=== PATIENT | male | born 1935 | race Caucasian/White ===

== ENCOUNTER 2021-05-26 21:22 | Inpatient (IN) | payer MEDICARE, MEDICAID ==
[~2021-05-26] VITALS: Ht 177.8 cm; Wt 57.9 kg
[~2021-05-26 21:22] MED LIST: ASPI81TA50 PO; HYDR-3237 PO; LISI-167 PO
--- NOTE | 2021-05-26 21:30 | NUR ---
THIS IS A 86M BIB EMS FROM [facility], PT HAS NEW ONSET RENAL FAILURE PER REPORT AND IS COVID+ (05/16), PT ALSO HAD ELEVATED TROPONIN AT PREVIOUS FACILITY AND INC WBC HOWEVER DID NOT GET ABX/ CULTURES. PT CONNECTED TO ALL MONITORING, VSS, NADN, TECH AT BEDSIDE FOR EKG.
[2021-05-26] MEDS ORDERED: AZITHROMYCIN 500 MG in SODIUM CHLORIDE 0.9% 250 ML IV ONE (22:00)
[2021-05-26] MEDS ORDERED: CEFTRIAXONE 1,000 MG in DEXTROSE 5% 50 ML IVPB ONE (22:00)
[2021-05-26] MEDS ORDERED: SODIUM CHLORIDE 0.9% 1,000ML IVBOLUS ONE (22:00)
[2021-05-26] MEDS ORDERED: VANCOMYCIN 1,500 MG in SODIUM CHLORIDE 0.9% 250 ML IV ONE (22:00)
[2021-05-26] MEDS ORDERED: VANCOMYCIN PER PHARMACY MC ONE (22:00)
[2021-05-26] MEDS ORDERED: SODIUM CHLORIDE FLUSH 10ML SYR IVF ONE (22:00)
[2021-05-26 22:14] LABS: MICROSCOPIC INDICATED
[2021-05-26] MEDS: SODIUM CHLORIDE 0.9% 1,000 ML IV ONE (22:19)
--- NOTE | 2021-05-26 22:19 | NUR ---
ABX STARTED AT THIS TIME, CULTURES DRAWN X2 PRIOR TO START
[2021-05-26 22:28] LABS: BASOPHILS % (AUTO) 0 % (0-1); EOSINOPHILS % (AUTO) 0 % (1-7); LYMPHOCYTES % (AUTO) 5 % (22-44); MEAN CORPUSCULAR HEMOGLOBIN 29.5 pg (27.5-34.5); MEAN CORPUSCULAR HGB CONC 33.2 g/dL (33.2-36.2); MEAN PLATELET VOLUME 8.3 fL (7.4-10.4); MONOCYTES % (AUTO) 4 % (2-9); NEUTROPHILS % (AUTO) 92 % (42-75); PLATELET COUNT 428 x10^3/uL (130-400); RED BLOOD COUNT 3.95 x10^6/uL (4.38-5.82); RED CELL DISTRIBUTION WIDTH 15.1 % (9.4-14.8)
[2021-05-26 22:32] LABS: ALANINE AMINOTRANSFERASE 26 U/L (12-78); ALBUMIN 2.2 g/dL (3.4-5.0); ANION GAP 13 mmol/L (5-15); CALCIUM 10.1 mg/dL (8.5-10.1); CHLORIDE 109 mmol/L (98-107); CREATININE 3.85 mg/dL (0.7-1.3)
[2021-05-26 22:37] LABS: ALKALINE PHOSPHATASE 84 U/L (45-117); BILIRUBIN,TOTAL 0.5 mg/dL (0.2-1.0); TOTAL PROTEIN 7.7 g/dL (6.4-8.2); TROPONIN I 0.051 ng/mL (0.000-0.045)
[2021-05-26] MEDS ORDERED: OMEP-110 PO (23:09)
[2021-05-26] MEDS ORDERED: FURO40TA6 PO (23:09)
[2021-05-26] MEDS ORDERED: ROSU40TA PO (23:09)
[2021-05-26] MEDS ORDERED: SPIR25TA5 PO (23:09)
[2021-05-26] MEDS ORDERED: TRAM50TA2 PO (23:09)
[2021-05-26] MEDS ORDERED: ATOR-2 PO (23:09)
[2021-05-26 23:18] LABS: INTERNATIONAL NORMALIZED RATIO 1.12 (0.93-1.1); PROTHROMBIN TIME 11.9 Seconds (9.6-11.5)
[2021-05-27] MEDS ORDERED: LABETALOL 5MG/ML, 20ML IVPush PRN
[2021-05-27] MEDS ORDERED: ACETAMINOPHEN 325 MG TABLET PO PRN
[2021-05-27] MEDS ORDERED: LACTATED RINGERS 1,000 ML IV SCH
[2021-05-27] MEDS ORDERED: VANCOMYCIN PER PHARMACY MC PRN
[2021-05-27] MEDS ORDERED: HYDROmorphone 2 MG/ML, 1ML IVPush PRN
[2021-05-27] MEDS ORDERED: POLYETHYLENE GLYCOL 17 GM PACKET PO PRN
[2021-05-27] MEDS: CEFTRIAXONE 1,000 MG in DEXTROSE 5% 50 ML IVPB SCH
[2021-05-27] MEDS ORDERED: ENOXAPARIN 40 MG/0.4 ML SQ SCH
[2021-05-27] MEDS ORDERED: PHARMACY MAY ADJ FOR RENAL FX MC PRN
[2021-05-27] MEDS ORDERED: MELATONIN 5 MG TABLET PO PRN
[2021-05-27] MEDS ORDERED: ASCORBIC ACID 500 MG TABLET PO SCH
[2021-05-27] MEDS ORDERED: ONDANSETRON 2MG/ML, 2ML IVPush PRN
--- NOTE | 2021-05-27 00:01 | NUR ---
HOSPITALIST AT BEDSIDE FOR ADMIT
--- NOTE | 2021-05-27 00:05 | NUR ---
PT HR NOW 130'S, PT HAS SIGNIFICANT TREMMORS, CAUSING PULSE OX UNABLE TO READ, HOSPITALIST AT BEDSIDE FOR REASSESSMENT.
[2021-05-27] MEDS: SODIUM CHLORIDE 0.9% 1,000 ML IV ONE (00:10)
--- NOTE | 2021-05-27 00:10 | NUR ---
PT UPGRADED FROM MEDICAL TO A MONITORED UNIT PER HOSPITALIST
[2021-05-27 01:11] LABS: TROPONIN I 0.056 ng/mL (0.000-0.045)
--- NOTE | 2021-05-27 01:22 | NUR ---
DR FITZPATRICK AT BEDSIDE FOR EVAL PT IS MORE CONFUSED AND IS REMOVING OXYMASK, VERBAL ORDER FOR RT AND HIGHFLOW O2 AT THIS TIME.
--- NOTE | 2021-05-27 01:38 | NUR ---
RT AT BEDSIDE
--- NOTE | 2021-05-27 01:50 | NUR ---
PTS BP SUDDENLY DROPPED DRASTICALLY TO 54/34, PT AWAKE BUT SLEEPY, PT RESPONDS TO QUESTIONS, PTS IVF NS BOLUS PLACED ON PRESSURE BAG AND INFUSED QUICKLY, PTS BP IMPROVED. SEE VITAL SIGNS FOR LOG. PT WAS TO BE MOVED TO ROOM 41 FOR RSI AND CENTRAL LINE, BUT PTS BP HAS IMPROVED AND MD WANTS TO WAIT ON INTUBATION, PTS O2 SATS ARE 98% AND HIS BP IS NOW 73/43 FOLLOWED UP BY A 91/45 BP. FOR NOW WE WILL WATCH PT AND REASSES. ADMITTING MD WILL CALL FAMILY AND DETERMINE CODE STATUS AND HOW AGGRESSIVE THE FAMILY WANTS TO BE WITH PTS CARE.
--- NOTE | 2021-05-27 02:30 | NUR ---
TASK RN, SPOKE WITH [facility], VERBAL ORDERS FOR MAGNESIUM LAB DRAW, NS AT 250 MLS/HR, AND LEVO GTT. ORDERS REPEATED
--- NOTE | 2021-05-27 02:42 | NUR ---
ERP TO BEDSIDE FOR CENTRAL LINE PLACEMENT
--- NOTE | 2021-05-27 03:29 | NUR ---
PHARMACY CALLED ABOUT HEPARIN GTT AND ANTIXA RESULT, PER PHARM IF PT GOT LOVENOX HEPARIN GTT TYPICALLY HELD FOR 12HRS WITH NORMAL RENAL FUNCTION, AND 24HRS WITH IMPAIRMENT. HOSPITALIST UPDATED AND STS HOLD GTT PT IS ANTICOAGULATED AT THIS POINT.
[2021-05-27] MEDS ORDERED: NOREPINEPHRINE 8 MG in SODIUM CHLORIDE 0.9% 242 ML IV PRN ×2 (03:30→07:30)
--- NOTE | 2021-05-27 03:40 | NUR ---
LEVO GTT STARTED AT THIS TIME
--- NOTE | 2021-05-27 04:20 | NUR ---
PT RESTING COMFORTABLY AT THIS TIME.
--- NOTE | 2021-05-27 04:22 | NUR ---
NO CHANGE IN GTT RATE AT THIS TIME
--- NOTE | 2021-05-27 04:30 | NUR ---
PT REMOVING OPTIFLOW, PT REPOSITIONED AND REMINDED HE NEEDS THAT OXYGEN. NO CHANGE IN GTT RATE AT THIS TIME
--- NOTE | 2021-05-27 04:56 | NUR ---
HOSPITTALIST AT BEDSIDE FOR REASSSSMENT, PER VERBAL ORDER FOR GARCIA INSERTION FOR I&O MONITORING, AND 1MG ATIVAN IV Q4HRS
[2021-05-27] MEDS ORDERED: LORazepam 2 MG/ML, 1ML ONE (04:59)
[2021-05-27] MEDS ORDERED: LORazepam 2 MG/ML, 1ML IVPush PRN (05:00)
--- NOTE | 2021-05-27 05:11 | NUR ---
PT MEDICATED PER ORDER 5 RIGHTS VERIFIED, GARCIA INSERTION COMPLETE AT THIS TIME, PT TOLERATED WELL NADN,
[2021-05-27 05:41] LABS: MEAN CORPUSCULAR HEMOGLOBIN 29.9 pg (27.5-34.5); MEAN CORPUSCULAR HGB CONC 33.5 g/dL (33.2-36.2); MEAN PLATELET VOLUME 7.8 fL (7.4-10.4); PLATELET COUNT 442 x10^3/uL (130-400); RED BLOOD COUNT 3.81 x10^6/uL (4.38-5.82); RED CELL DISTRIBUTION WIDTH 15.4 % (9.4-14.8)
[2021-05-27 05:52] LABS: ANION GAP 8 mmol/L (5-15); CHLORIDE 119 mmol/L (98-107); CREATININE 3.17 mg/dL (0.7-1.3)
[2021-05-27] MEDS: ALBUTEROL-IPRATROPIUM MDI INH INH SCH ×5 (06:00→21:00)
--- NOTE | 2021-05-27 06:12 | NUR ---
REPORT TO MELY ALVARADO, ALL QUESTIONS ADDRESSED PT READY FOR TRANSFER AT THIS TIME
[2021-05-27 06:33] LABS: BAND#(MANUAL) 3.94 x10^3/uL; BANDS%(MANUAL) 16 % (0-7); LYMPH#(MANUAL) 0.49 x10^3/uL (1-3.4); LYMPHS% (MANUAL) 2 % (22-44); METAMYELOCYTES# (MANUAL) 0.25 x10^3/uL (0-0); METAMYELOCYTES% (MANUAL) 1 % (0-1); MONOS#(MANUAL) 0.98 x10^3/uL (0.3-2.7); MONOS% (MANUAL) 4 % (2-9); SEG#(MANUAL) 18.94 x10^3/uL (1.8-6.8); SEGS% (MANUAL) 77 % (42-75)
[2021-05-27 06:35] LABS: <PLATELET ESTIMATE> INCREASED; <PLT MORPHOLOGY> NORMAL PLT MORPH; ANISOCYTOSIS 1+; ECHINOCYTES 1+
[2021-05-27] MEDS ORDERED: PHARMACOKINETIC MONITORING MC PRN (07:00)
[2021-05-27] MEDS ORDERED: LOVENOX/HEPARIN MC SCH (07:00)
[2021-05-27] MEDS ORDERED: PHARMACOKINETIC CONSULTATION MC ONE (07:00)
[2021-05-27] MEDS ORDERED: REMDESIVIR 100 MG in SODIUM CHLORIDE 0.9% 250 ML IVPB ONE (07:30)
[2021-05-27] MEDS ORDERED: REMDESIVIR 200 MG in SODIUM CHLORIDE 0.9% 250 ML IVPB ONE (07:30)
[2021-05-27] MEDS: SODIUM BICARBONATE 8.4% 150 MEQ in DEXTROSE 5% 1,000 ML IV SCH ×2 (08:15→18:46)
[2021-05-27] MEDS ORDERED: FLUTICASONE/VILANTEROL 100-25MCG/INH INH SCH (09:00)
[2021-05-27] MEDS: DEXAMETHASONE 4 MG/ML, 1ML IVPush SCH (09:43)
[2021-05-27] MEDS: ASCORBIC ACID 500 MG TABLET PO SCH ×2 (11:47→17:22)
[2021-05-27] MEDS: THIAMINE 100MG TABLET PO SCH (11:48)
[2021-05-27] MEDS: ZINC SULFATE 220 MG CAPSULE PO SCH (11:48)
[2021-05-27] MEDS: CHOLECALCIFEROL 5,000u TAB PO SCH (11:48)
[2021-05-27] MEDS: AZITHROMYCIN 500 MG TABLET PO SCH (11:49)
[2021-05-27] MEDS: HEPARIN 25,000 UNITS/250ML PMX 250 ML IV PRN (12:14)
[2021-05-27] MEDS: HEPARIN 5,000 UNITS/ML, 1ML IV PRN (23:03)
[2021-05-28] MEDS ORDERED: LACTATED RINGERS 1,000 ML IV SCH
[2021-05-28] MEDS: CEFTRIAXONE 1,000 MG in DEXTROSE 5% 50 ML IVPB SCH ×2 (00:52→23:18)
[2021-05-28 05:38] LABS: MEAN CORPUSCULAR HEMOGLOBIN 30.1 pg (27.5-34.5); MEAN CORPUSCULAR HGB CONC 34.3 g/dL (33.2-36.2); MEAN PLATELET VOLUME 8.1 fL (7.4-10.4); PLATELET COUNT 343 x10^3/uL (130-400); RED BLOOD COUNT 3.39 x10^6/uL (4.38-5.82)
[2021-05-28 05:41] LABS: ALANINE AMINOTRANSFERASE 22 U/L (12-78); ALBUMIN 1.5 g/dL (3.4-5.0); ANION GAP 7 mmol/L (5-15); CALCIUM 8.7 mg/dL (8.5-10.1); CHLORIDE 107 mmol/L (98-107); CREATININE 2.02 mg/dL (0.7-1.3)
[2021-05-28 05:45] LABS: ALKALINE PHOSPHATASE 80 U/L (45-117); BILIRUBIN,TOTAL 0.3 mg/dL (0.2-1.0); TOTAL PROTEIN 6.2 g/dL (6.4-8.2); VANCOMYCIN,RANDOM 11.3 mcg/mL
[2021-05-28] MEDS: ALBUTEROL-IPRATROPIUM MDI INH INH SCH (05:49)
[2021-05-28] MEDS: SODIUM BICARBONATE 8.4% 150 MEQ in DEXTROSE 5% 1,000 ML IV SCH (05:49)
[2021-05-28 06:05] LABS: BAND#(MANUAL) 0.64 x10^3/uL; BANDS%(MANUAL) 3 % (0-7)
[2021-05-28 06:06] LABS: <PLATELET ESTIMATE> ADEQUATE; <PLT MORPHOLOGY> NORMAL PLT MORPH; ANISOCYTOSIS 1+; LYMPH#(MANUAL) 0.43 x10^3/uL (1-3.4); LYMPHS% (MANUAL) 2 % (22-44); MONOS#(MANUAL) 0.43 x10^3/uL (0.3-2.7); MONOS% (MANUAL) 2 % (2-9); SEG#(MANUAL) 19.81 x10^3/uL (1.8-6.8); SEGS% (MANUAL) 93 % (42-75)
[2021-05-28] MEDS ORDERED: ALBUTEROL-IPRATROPIUM MDI INH INH PRN (08:00)
[2021-05-28] MEDS: REMDESIVIR 50 MG in SODIUM CHLORIDE 0.9% 250 ML IVPB SCH (09:00)
[2021-05-28] MEDS: DEXAMETHASONE 4 MG/ML, 1ML IVPush SCH (09:04)
[2021-05-28] MEDS: POTASSIUM CHLORIDE 20 MEQ PACKET PO SCH ×2 (09:06→17:57)
[2021-05-28] MEDS: CHOLECALCIFEROL 5,000u TAB PO SCH (09:07)
[2021-05-28] MEDS: AZITHROMYCIN 500 MG TABLET PO SCH (09:07)
[2021-05-28] MEDS: ZINC SULFATE 220 MG CAPSULE PO SCH (09:07)
[2021-05-28] MEDS: ASCORBIC ACID 500 MG TABLET PO SCH ×2 (09:07→17:57)
[2021-05-28] MEDS: THIAMINE 100MG TABLET PO SCH (09:07)
[2021-05-28] MEDS ORDERED: REMDESIVIR 100 MG in SODIUM CHLORIDE 0.9% 250 ML IVPB SCH (09:30)
[2021-05-28] MEDS: HEPARIN 25,000 UNITS/250ML PMX 250 ML IV PRN (13:39)
[2021-05-28] MEDS: HEPARIN 5,000 UNITS/ML, 1ML IV PRN (18:01)
[2021-05-29 05:15] LABS: MEAN PLATELET VOLUME 8.3 fL (7.4-10.4); PLATELET COUNT 258 x10^3/uL (130-400); RED BLOOD COUNT 3.44 x10^6/uL (4.38-5.82); RED CELL DISTRIBUTION WIDTH 15.1 % (9.4-14.8)
[2021-05-29 05:24] LABS: ANION GAP 7 mmol/L (5-15); CALCIUM 8.9 mg/dL (8.5-10.1); CHLORIDE 115 mmol/L (98-107); CREATININE 1.37 mg/dL (0.7-1.3)
[2021-05-29 06:07] LABS: <PLATELET ESTIMATE> ADEQUATE; <PLT MORPHOLOGY> NORMAL PLT MORPH; ANISOCYTOSIS 1+; ECHINOCYTES 1+; LYMPH#(MANUAL) 0.75 x10^3/uL (1-3.4); LYMPHS% (MANUAL) 4 % (22-44); MONOS#(MANUAL) 0.19 x10^3/uL (0.3-2.7); MONOS% (MANUAL) 1 % (2-9); SEG#(MANUAL) 17.77 x10^3/uL (1.8-6.8); SEGS% (MANUAL) 95 % (42-75)
[2021-05-29] MEDS: ENOXAPARIN 30 MG/0.3 ML SQ SCH ×2 (07:41→19:48)
[2021-05-29] MEDS: ASCORBIC ACID 500 MG TABLET PO SCH ×2 (09:35→17:44)
[2021-05-29] MEDS: REMDESIVIR 50 MG in SODIUM CHLORIDE 0.9% 250 ML IVPB SCH (09:35)
[2021-05-29] MEDS: AZITHROMYCIN 500 MG TABLET PO SCH (09:35)
[2021-05-29] MEDS: DEXAMETHASONE 4 MG/ML, 1ML IVPush SCH (09:35)
[2021-05-29] MEDS: ZINC SULFATE 220 MG CAPSULE PO SCH (09:36)
[2021-05-29] MEDS: CHOLECALCIFEROL 5,000u TAB PO SCH (09:36)
[2021-05-29] MEDS: THIAMINE 100MG TABLET PO SCH (09:36)
[2021-05-29 17:29] LABS: ALANINE AMINOTRANSFERASE 24 U/L (12-78); ALBUMIN 1.6 g/dL (3.4-5.0); ANION GAP 6 mmol/L (5-15); CALCIUM 9.2 mg/dL (8.5-10.1); CHLORIDE 114 mmol/L (98-107); CREATININE 1.43 mg/dL (0.7-1.3)
[2021-05-29 17:32] LABS: ALKALINE PHOSPHATASE 78 U/L (45-117); BILIRUBIN,TOTAL 0.2 mg/dL (0.2-1.0); TOTAL PROTEIN 6.4 g/dL (6.4-8.2)
[2021-05-29 20:20] VITALS: BP 137/78
[2021-05-30] MEDS: CEFTRIAXONE 1,000 MG in DEXTROSE 5% 50 ML IVPB SCH ×2 (00:33→23:42)
[2021-05-30 01:24] VITALS: BP 117/71
[2021-05-30 06:25] LABS: BASOPHILS % (AUTO) 0 % (0-1); EOSINOPHILS % (AUTO) 0 % (1-7); LYMPHOCYTES % (AUTO) 4 % (22-44); MEAN CORPUSCULAR HEMOGLOBIN 29.6 pg (27.5-34.5); MEAN CORPUSCULAR HGB CONC 33.6 g/dL (33.2-36.2); MEAN PLATELET VOLUME 7.8 fL (7.4-10.4); MONOCYTES % (AUTO) 5 % (2-9); NEUTROPHILS % (AUTO) 91 % (42-75); PLATELET COUNT 354 x10^3/uL (130-400); RED BLOOD COUNT 3.54 x10^6/uL (4.38-5.82); RED CELL DISTRIBUTION WIDTH 15.5 % (9.4-14.8)
[2021-05-30 06:38] LABS: ALANINE AMINOTRANSFERASE 26 U/L (12-78); ALBUMIN 1.7 g/dL (3.4-5.0); ANION GAP 3 mmol/L (5-15); CALCIUM 9.6 mg/dL (8.5-10.1); CHLORIDE 114 mmol/L (98-107); CREATININE 1.23 mg/dL (0.7-1.3)
[2021-05-30 06:41] LABS: ALKALINE PHOSPHATASE 92 U/L (45-117); BILIRUBIN,TOTAL 0.3 mg/dL (0.2-1.0); TOTAL PROTEIN 6.3 g/dL (6.4-8.2)
[2021-05-30 07:48] VITALS: BP 117/70
[2021-05-30] MEDS: ENOXAPARIN 30 MG/0.3 ML SQ SCH ×2 (09:56→20:16)
[2021-05-30] MEDS: REMDESIVIR 50 MG in SODIUM CHLORIDE 0.9% 250 ML IVPB SCH (09:56)
[2021-05-30] MEDS: AZITHROMYCIN 500 MG TABLET PO SCH (09:57)
[2021-05-30] MEDS: DEXAMETHASONE 4 MG/ML, 1ML IVPush SCH (09:57)
[2021-05-30] MEDS: THIAMINE 100MG TABLET PO SCH (09:57)
[2021-05-30] MEDS: CHOLECALCIFEROL 5,000u TAB PO SCH (09:57)
[2021-05-30] MEDS: ASCORBIC ACID 500 MG TABLET PO SCH ×2 (09:58→16:47)
[2021-05-30] MEDS: ZINC SULFATE 220 MG CAPSULE PO SCH (09:58)
[2021-05-30 12:36] VITALS: BP 150/76
[2021-05-30 19:53] VITALS: BP 137/74
[2021-05-31 00:15] VITALS: BP 130/74
[2021-05-31 05:09] LABS: BASOPHILS % (AUTO) 0 % (0-1); EOSINOPHILS % (AUTO) 0 % (1-7); LYMPHOCYTES % (AUTO) 5 % (22-44); MEAN CORPUSCULAR HGB CONC 33.5 g/dL (33.2-36.2); MEAN PLATELET VOLUME 7.7 fL (7.4-10.4); MONOCYTES % (AUTO) 5 % (2-9); NEUTROPHILS % (AUTO) 89 % (42-75); PLATELET COUNT 323 x10^3/uL (130-400); RED BLOOD COUNT 3.73 x10^6/uL (4.38-5.82); RED CELL DISTRIBUTION WIDTH 15.5 % (9.4-14.8)
[2021-05-31 05:17] LABS: CHLORIDE 112 mmol/L (98-107)
[2021-05-31 05:23] LABS: ALANINE AMINOTRANSFERASE 33 U/L (12-78); ALBUMIN 1.7 g/dL (3.4-5.0); ALKALINE PHOSPHATASE 88 U/L (45-117); ANION GAP 7 mmol/L (5-15); BILIRUBIN,TOTAL 0.3 mg/dL (0.2-1.0); CREATININE 1.15 mg/dL (0.7-1.3); TOTAL PROTEIN 6.4 g/dL (6.4-8.2)
[2021-05-31 07:34] VITALS: BP 112/64
[2021-05-31] MEDS: AZITHROMYCIN 500 MG TABLET PO SCH (08:56)
[2021-05-31] MEDS: ASCORBIC ACID 500 MG TABLET PO SCH ×2 (08:56→16:34)
[2021-05-31] MEDS: ZINC SULFATE 220 MG CAPSULE PO SCH (08:56)
[2021-05-31] MEDS: ENOXAPARIN 30 MG/0.3 ML SQ SCH (08:56)
[2021-05-31] MEDS: CHOLECALCIFEROL 5,000u TAB PO SCH (08:56)
[2021-05-31] MEDS: THIAMINE 100MG TABLET PO SCH (08:56)
[2021-05-31] MEDS: DEXAMETHASONE 4 MG/ML, 1ML IVPush SCH (08:56)
[2021-05-31] MEDS: REMDESIVIR 50 MG in SODIUM CHLORIDE 0.9% 250 ML IVPB SCH (08:57)
[2021-05-31 13:56] VITALS: BP 103/60
[2021-05-31] MEDS ORDERED: ENOXAPARIN 30 MG/0.3 ML SQ ONE (14:00)
[2021-05-31] MEDS ORDERED: ENOXAPARIN 60 MG/0.6 ML SQ SCH (14:00)
[2021-05-31] MEDS: ENOXAPARIN 60 MG/0.6 ML SQ SCH (20:12)
[2021-05-31 20:49] VITALS: BP 127/76
[2021-06-01] MEDS: CEFTRIAXONE 1,000 MG in DEXTROSE 5% 50 ML IVPB SCH (00:05)
[2021-06-01 01:52] VITALS: BP 136/74
[2021-06-01 05:12] LABS: BASOPHILS % (AUTO) 0 % (0-1); EOSINOPHILS % (AUTO) 0 % (1-7); LYMPHOCYTES % (AUTO) 6 % (22-44); MEAN CORPUSCULAR HEMOGLOBIN 30.2 pg (27.5-34.5); MEAN CORPUSCULAR HGB CONC 33.8 g/dL (33.2-36.2); MONOCYTES % (AUTO) 6 % (2-9); NEUTROPHILS % (AUTO) 87 % (42-75); PLATELET COUNT 275 x10^3/uL (130-400); RED BLOOD COUNT 4.01 x10^6/uL (4.38-5.82); RED CELL DISTRIBUTION WIDTH 15.3 % (9.4-14.8)
[2021-06-01 05:25] LABS: CHLORIDE 108 mmol/L (98-107)
[2021-06-01 05:32] LABS: ALANINE AMINOTRANSFERASE 35 U/L (12-78); ALBUMIN 1.8 g/dL (3.4-5.0); ALKALINE PHOSPHATASE 88 U/L (45-117); ANION GAP 6 mmol/L (5-15); BILIRUBIN,TOTAL 0.4 mg/dL (0.2-1.0); CALCIUM 9.9 mg/dL (8.5-10.1); CREATININE 1.02 mg/dL (0.7-1.3)
[2021-06-01] MEDS: THIAMINE 100MG TABLET PO SCH (08:05)
[2021-06-01] MEDS: ASCORBIC ACID 500 MG TABLET PO SCH ×2 (08:05→17:16)
[2021-06-01] MEDS: ENOXAPARIN 60 MG/0.6 ML SQ SCH (08:05)
[2021-06-01] MEDS: AZITHROMYCIN 500 MG TABLET PO SCH (08:05)
[2021-06-01] MEDS: DEXAMETHASONE 4 MG/ML, 1ML IVPush SCH (08:05)
[2021-06-01] MEDS: ZINC SULFATE 220 MG CAPSULE PO SCH (08:05)
[2021-06-01] MEDS: CHOLECALCIFEROL 5,000u TAB PO SCH (08:06)
[2021-06-01 08:14] VITALS: BP 122/54
[2021-06-01] MEDS ORDERED: ASCO500T9 PO (12:29)
[2021-06-01] MEDS ORDERED: ZINC220C8 PO (12:29)
[2021-06-01] MEDS ORDERED: THIA100T67 PO (12:29)
[2021-06-01] MEDS ORDERED: APIX5TAB PO (12:29)
[2021-06-01] MEDS ORDERED: PRED20TA PO (12:29)
[2021-06-01] MEDS ORDERED: CHOL500045 PO (12:29)
[2021-06-01 13:00] VITALS: BP 130/64
[2021-06-01 14:11] VITALS: BP 120/68
[2021-06-01] MEDS ORDERED: ONDANSETRON 4 MG TABLET ONE (17:28)
[2021-06-01] MEDS ORDERED: APIXABAN 5 MG TABLET PO SCH (21:00)
== END 2021-06-01 19:50 | disposition home health service (06) | DRG 871 ==
LOC: ED 21:54 → EDIP 23:34 → CCU 05-27 06:23 → 3N 05-29 13:02
PROVIDERS: ADMIT Internal Medicine; ATTEND Internal Medicine
PROC: 06HY33Z Insertion of Infusion Device into Lower Vein, Percutaneous Approach (ICD-10-PCS; 2021-05-26)
PROC: XW033E5 Introduction of Remdesivir Anti-infective into Peripheral Vein, Percutaneous Approach, New Technology Group 5 (ICD-10-PCS; 2021-05-27)
PROC: 02HV33Z Insertion of Infusion Device into Superior Vena Cava, Percutaneous Approach (ICD-10-PCS; principal; 2021-05-28)
PROC: B548ZZA Ultrasonography of Superior Vena Cava, Guidance (ICD-10-PCS; 2021-05-28)
DX: A41.89 Other specified sepsis (principal); U07.1 COVID-19; J12.82 Pneumonia due to coronavirus disease 2019; R57.1 Hypovolemic shock; G93.41 Metabolic encephalopathy; I21.A1 Myocardial infarction type 2; J96.01 Acute respiratory failure with hypoxia; E43 Unspecified severe protein-calorie malnutrition; N17.0 Acute kidney failure with tubular necrosis; J15.9 Unspecified bacterial pneumonia; Z68.1 Body mass index [BMI] 19.9 or less, adult; D68.69 Other thrombophilia; I82.401 Acute embolism and thrombosis of unspecified deep veins of right lower extremity; E78.00 Pure hypercholesterolemia, unspecified; E78.5 Hyperlipidemia, unspecified; I10 Essential (primary) hypertension; I25.10 Atherosclerotic heart disease of native coronary artery without angina pectoris; I77.810 Thoracic aortic ectasia; T38.0X5A Adverse effect of glucocorticoids and synthetic analogues, initial encounter; Z66 Do not resuscitate; Z95.1 Presence of aortocoronary bypass graft
CPT/HCPCS: 36415; 36573; 36600; 71045; 74018; 78580; 80048; 80053; 80202; 81001; 82728; 82803; 83605; 83735; 83880; 84145; 84484; 85025; 85379; 85520; 85610; 85730; 86140; 87040; 87081; 93005; 93306; 93970; 96361; 96365; 99291; G0378; J0456; J0696; J1100; J1644; J1650; J2405; J3370; J7070; A9540; C1751; J7030; J7050